=== PATIENT | female | born 1955 | race Caucasian/White ===

== ENCOUNTER 2016-07-15 07:27 | Day surgery (SDC) | payer BC ==
[~2016-07-15] VITALS: Ht 165.1 cm; Wt 53.0 kg
--- NOTE | 2016-07-16 08:27 | OR ---
ADMIT: 07/15/2016 RM/LOC: [facility] MR#: [id number] [address] [id number] [place]ANS[place] ANDERSON [address] [place] [id number] Operative/Delivery Room Report SEX: F AGE: 60 : 1955 SURGERY DATE: 07/15/2016 SURGEON: Paxton Spring MD PROCEDURE: Total colonoscopy with hot biopsy polypectomies. PREOPERATIVE DIAGNOSIS: Screening colonoscopy. POSTOPERATIVE DIAGNOSIS: Colon polyps. DESCRIPTION OF PROCEDURE: The patient brought to procedure room, placed in left lateral decubitus position. Informed consent had been obtained preoperatively. The risks and benefits including, but not limited to, perforation, sedation, and bleeding were discussed with the patient and agreed upon. All questions were answered, alternatives discussed. The patient agreed. Monitored anesthesia care was provided by August Yao CRNA, with propofol. Anal inspection revealed some hemorrhoidal tags. Digital examination revealed no abnormalities or obstructing masses. Olympus videoendoscope, model CF- [id number] was inserted the rectum and advanced to cecum using external pressure. Appendiceal orifice and ileocecal valve were identified. The valve was not cannulated due to position. Scope was slowly withdrawn through a normal cecum into the mid ascending colon where there was an adenomatous-appearing polyp that was removed in piecemeal fashion using a hot biopsy forceps. The remainder of the ascending, transverse, and descending were normal. In the mid sigmoid, there was another smaller polyp that was removed with the hot biopsy forceps, cauterized, and retrieved. The remainder of the sigmoid was normal. In the rectum, there was some nonspecific proctitis probably secondary to the prep. Retroflexion of the scope once again revealed some external tags. Scope was removed. The patient tolerated the procedure well. No complications were expected. Blood loss was less than 1 mL. She will call me in 1 week for her biopsy report, sooner if she should have any postoperative problems. I recommend that she have repeat colonoscopy in 3 years due to the number of polyps unless signs or symptoms develop in the interval. She will call me as mentioned in 1 week for her biopsy report, sooner if she should have any postoperative problems. Paxton Spring MD/ roslyn JOB #: [id number] CC: Paxton Spring, Attending Physician Gem Boudreaux, Family Physician Gem Boudreaux MD
== END 2016-07-15 10:55 | disposition home or self-care (01) ==
LOC: SSS 07:27
PROC: 0DBN8ZX Excision of Sigmoid Colon, Via Natural or Artificial Opening Endoscopic, Diagnostic (ICD-10-PCS; principal; 2016-07-15)
PROC: 0DBK8ZX Excision of Ascending Colon, Via Natural or Artificial Opening Endoscopic, Diagnostic (ICD-10-PCS; principal; 2016-07-15)
DX: Z12.11 Encounter for screening for malignant neoplasm of colon (principal); D12.2 Benign neoplasm of ascending colon; D12.5 Benign neoplasm of sigmoid colon; Z79.899 Other long term (current) drug therapy; Z98.890 Other specified postprocedural states